=== PATIENT | female | born 2005 | race Caucasian/White ===

== ENCOUNTER 2024-02-22 06:19 | Day surgery (SDC) | payer BC ==
[~2024-02-22 06:19] MED LIST: LACTATED RINGERS 1,000 ML IV SCH
[2024-02-22] MEDS: LACTATED RINGERS 1,000 ML IV ONE (06:50)
[2024-02-22] MEDS: OXYMETAZOLINE 0.05% NASL SPRAY 1 SPRAY BOTTLE EA NOSTRIL PRN (06:54)
[2024-02-22] MEDS ORDERED: HYDROmorphone 0.5 MG/0.5 ML SYRINGE IVP PRN (07:00)
[2024-02-22] MEDS: FAMOTIDINE 20 MG/2 ML VIAL IV PRN (07:15)
[2024-02-22] MEDS: ONDANSETRON 4 MG/2 ML VIAL IVP ONE (07:15)
[2024-02-22] MEDS: DEXAMETHASONE SOD PHOSPHATE 4 MG/ML 1 ML VIAL IV ONE (07:15)
[2024-02-22] MEDS ORDERED: fentaNYL (PF) 50 MCG/ML 2 ML AMP ONE (07:30)
[2024-02-22] MEDS ORDERED: PROPOFOL 10 MG/ML 20 ML VIAL IV ONE (07:30)
[2024-02-22] MEDS ORDERED: MIDAZOLAM 2 MG/2 ML VIAL ONE (07:30)
[2024-02-22] MEDS: LIDOCAINE 1%-EPI 1:100,000 20 ML VIAL SUBMUCOSAL ONE (07:30)
[2024-02-22] MEDS ORDERED: SUCCINYLCHOLINE CHLORIDE 200 MG/10 ML VIAL IV ONE (07:30)
[2024-02-22] MEDS ORDERED: LIDOCAINE 1% INJ 10MG/ML (20 ML MDV) ONE (07:30)
[2024-02-22] MEDS: BACITRACIN ZINC 500 UNIT/GM OINT 28.4 GM TUBE TOPICAL ONE (07:51)
--- NOTE | 2024-02-22 07:59 | P.PCN ---
Date of Procedure: 02/22/24 Preoperative Diagnosis: recurrent epistaxis Postoperative Diagnosis: same Procedure(s) Performed: bilateral nasal endoscopy with bilateral selective cautery of the nasal septum Anesthesia: AROLDO Surgeon: Floyd Pugh Estimated Blood Loss (ml): 0 Condition: stable Disposition: PACU Indications for Procedure: this is a 18-year-old white female whose had difficulties with recurrent epistaxis mostly on the left but more recently on the right also intermittently used with a physical exam showing suspected hemangioma on the left nasal septum- reviewed option of bilateral nasal exam under anesthesia and had verbal approval from the patient and her mother to proceed with bilateral nasal endoscopy with selective cauterization of any vessel that was suspicious for causing epistaxis Operative Findings: prominent vessels bilateral anterior septum superior anterior on the left and inferior anterior on the right with more prominent vessel notable on the right anterior septum. No hemangiomas noted Description of Procedure: patient brought in after she puts a supine position. Patient underwent induction of general anesthesia with oral endotracheal intubation without difficulty. Patient prepped and draped in usual aseptic fashion. Full 0 to endoscopic nasal endoscopy was performed bilaterally. Under endoscopy beginning on the left there was a superior prominent vessel on the anterior septum which was cauterized with suction cautery selectively. Attention was then turned to the right. Nasal endoscopy was performed on this side also. This vessel was much more prominent and impressive than the left and was inferior based and the inferiorly -based vessel was cauterized with suction cautery. These vessels not correspond to each other. Bacitracin ointment was placed at both sites the patient was then allowed to emerge from general anesthesia having tolerated procedure well was extubated in the operating suite and transferred to the postop recovery area in satisfactory condition.
[2024-02-22 08:18] VITALS: TEMP 97.1
[2024-02-22 09:04] VITALS: BP 109/70; PULSE 79; RESP 16
== END 2024-02-22 09:35 | disposition home or self-care (01) ==
LOC: OR 06:19
PROVIDERS: ATTEND Otolaryngology
DX: R04.0 Epistaxis (principal); F41.9 Anxiety disorder, unspecified; F32.A Depression, unspecified; Z79.899 Other long term (current) drug therapy
CPT/HCPCS: 81025; 30901; J2250; J0330; J1100; J2405; J2001; J3010; J3490; J2704